=== PATIENT | male | born 1990 | race American Indian/Alaskan Native ===

== ENCOUNTER 2019-04-29 20:25 | Emergency (ER) | payer MEDICAID ==
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
[2019-04-29 20:35] VITALS: BP 151/104
[2019-04-29] MEDS ORDERED: oxyCODONE /ACETAMINOPHEN 5-325MG TAB PO ONE (21:50)
[2019-04-29] MEDS ORDERED: IBUPROFEN 600 MG TAB PO ONE (21:50)
[2019-04-29] MEDS ORDERED: ONDANSETRON 4 MG ODT TAB PO ONE (21:50)
[2019-04-29] MEDS ORDERED: CYCLOBENZAPRINE 10 MG TAB PO ONE (21:50)
--- NOTE | 2019-04-29 22:07 | XRay Report ---
HISTORY:hand pain r/o foreign body/fx COMPARISON: None. TECHNIQUE: AP lateral and obliques views were obtained FINDINGS: Bones: Fracture distal aspect of the fifth metacarpal is present with angulation. Joint spaces: Maintained. Soft tissues: No significant abnormality. Additional findings: None. IMPRESSION: 1. Fracture distal fifth metacarpal Signer Name: Lai Dey MD Signed: 04/29/2019 10:03 PM Workstation Name: [id number]
[2019-04-29] MEDS ORDERED: NEOMY 3.5 MG/BACIT 400 UNITS/POLY B 5000 UNITS/GM OINT PACKET TP ONE ×2 (22:30→22:31)
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
== END 2019-04-29 23:20 | disposition home or self-care (01) ==
LOC: ED 20:25
DX: S62.336A Displaced fracture of neck of fifth metacarpal bone, right hand, initial encounter for closed fracture (principal); S63.91XA Sprain of unspecified part of right wrist and hand, initial encounter; S60.221A Contusion of right hand, initial encounter; Z88.8 Allergy status to other drugs, medicaments and biological substances; W22.01XA Walked into wall, initial encounter; Y93.89 Activity, other specified; Y92.009 Unspecified place in unspecified non-institutional (private) residence as the place of occurrence of the external cause; Y99.8 Other external cause status
CPT/HCPCS: A6250; Q0162

== ENCOUNTER 2019-05-18 11:41 | Day surgery (SDC) | payer MEDICAID ==
[~2019-05-18 11:41] MED LIST: ceFAZolin/STERILE WATER 2 GM/20 ML SYRINGE IV NR
[2019-05-18] MEDS ORDERED: fentaNYL 100 MCG/2 ML INJ IV PRN (12:10)
[2019-05-18] MEDS ORDERED: ONDANSETRON 4 MG/2 ML INJ IV PRN (12:10)
--- NOTE | 2019-05-18 12:11 | Anesthesia Day of Surgery ---
Anesthesia Day of Surgery - Day of Surgery Patient Examined: Yes Patient H&P Reviewed: Yes Patient is NPO: Yes
--- NOTE | 2019-05-18 12:14 | Anesthesia Consultation ---
Anesthesia Consult and Med Hx Date of service: 05/18/19 - Airway Anesthetic Teeth Evaluation: Chipped ROM Head & Neck: Adequate Mental/Hyoid Distance: Adequate Mallampati Class: Class I Intubation Access Assessment: Good - Pre-Operative Health Status ASA Pre-Surgery Classification: ASA2 Proposed Anesthetic Plan: General - Pulmonary Hx Smoking: Yes (1-2 CIG. PER DAY) Hx Sleep Apnea: No (ROBE PRE SCREEN LOW RISK) - Cardiovascular System Hx Hypertension: Yes (STOPPED MEDS PER SELF X 2 WEEKS) - Central Nervous System Hx Psychiatric Problems: Yes (Anx/Depr/Chronic Anger) - Other Systems Hx Cancer: No
[2019-05-18] MEDS ORDERED: LACTATED RINGERS 1,000 ML IV SCH (13:00)
[2019-05-18] MEDS ORDERED: MIDAZOLAM 2 MG/2 ML INJ IV NR (13:00)
[2019-05-18] MEDS ORDERED: NEOMY 40 MG/POLYMYXIN B 200,000 UNITS/ML (GU) AMPULE IR ONE ×2 (13:06→14:07)
[2019-05-18] MEDS ORDERED: LIDOCAINE MPF (2%) 20 MG/1 ML VIAL 5 ML ONE (13:09)
[2019-05-18] MEDS ORDERED: PROPOFOL 200 MG/20 ML VIAL IV ONE (13:09)
[2019-05-18] MEDS ORDERED: fentaNYL 100 MCG/2 ML INJ ONE (13:09)
[2019-05-18] MEDS ORDERED: MIDAZOLAM 2 MG/2 ML INJ ONE (13:09)
[2019-05-18] MEDS ORDERED: KETOROLAC 30 MG/1 ML INJ ONE (13:42)
[2019-05-18] MEDS ORDERED: ONDANSETRON 4 MG/2 ML INJ ONE (13:42)
[2019-05-18] MEDS ORDERED: SODIUM CHLORIDE 0.9% IRR 1,500 ML BOTTLE IR ONE (14:07)
[2019-05-18] MEDS ORDERED: HYDROmorphone 1 MG/1 ML INJ ONE ×2 (14:30→15:47)
[2019-05-18] MEDS ORDERED: BUPIVACAINE/PF (0.5%) 5 MG/1 ML 30 ML VIAL INFILTRATI ONE ×2 (14:53→15:00)
[2019-05-18] MEDS ORDERED: LACTATED RINGERS 1,000 ML ONE (15:10)
--- NOTE | 2019-05-18 15:21 | Procedure Note ---
Date of procedure: 05/18/19 Pre-op diagnosis: Displaced right 5th metacarpal fracture Post-op diagnosis: same Procedure: Attempted closed reduction followed by a mini open reduction insertion of intramedullary nail right fifth metacarpal Procedure The patient was brought to the OR and placed on the OR table in the supine position following induction with Mac anesthesia the patient's right upper extremity was prepped and draped in the usual sterile manner. A timeout procedure was done to identify the patient and the correct operative site. The arm was exsanguinated followed by inflation of the pneumatic tourniquet to 250 mmHg. Using C-arm fluoroscopy the right hand the patient was manipulated to restore normal alignment this was followed by insertion of the threaded guide wire into the distal fragment after multiple attempts at placing the guidewire into the metacarpal head and traversing the distal fragment with no significant change in position decision was made to perform a mini open procedure using a midline incision over the distal portion of the fifth metacarpal shaft and head this was taken down sharply through skin and subcutaneous the extensor tendon was split longitudinally.Retractors were placed and the wound the distal fragment was seen and was manipulated into a note more reduced position this was followed by insertion of the threaded guidewire this was followed by placement of a 4.5 mm intramedullary nail which measured 40 mm in length. AP and lateral views were obtained showing good reduction at the fracture and placement of the IM theresa. The wound was then copiously irrigated the extensor tendon were repaired using 2-0 Vicryl the skin was closed with 3-0 nylon routine. Dressings were applied as well as a finger splint with the fifth finger and flexion at the metacarpophalangeal joint and PIP joints. The patient tolerated the procedure there were no complications Anesthesia: MAC Surgeon: FELIPE ABARCA Estimated blood loss: minimal Pathology: none Condition: stable Disposition: PACU
--- NOTE | 2019-05-18 15:47 | XRay Report ---
INTRAOPERATIVE FLUOROSCOPY: RIGHT LITTLE FINGER 2 FLUOROSCOPIC IMAGES INDICATION / CLINICAL INFORMATION: DISPLACED FX FIFTH METATARSAL RT HAND/ORIF. TECHNIQUE: Intraoperative spot images were obtained during the procedure. FINDINGS: A screw is seen within the right little finger metacarpal shaft which does not definitely traverse th e little finger metacarpal head fracture fragment with mild volar angulation. Findings were discussed with Dr. Reyna. Close follow-up 3 view postop x-rays are recommended. Fluoroscopy Time: 1 minute 52 seconds. Fluoroscopy Images: 2. Signer Name: Tae Rodriguez MD Signed: 05/18/2019 3:43 PM Workstation Name: [id number]
[2019-05-18] MEDS ORDERED: HYDROcodone/ACETAMINOPHEN 7.5-325MG TAB PO PRN (15:51)
[2019-05-18] MEDS ORDERED: HYDROcodone/ACETAMINOPHEN 7.5-325MG TAB ONE (15:52)
[2019-05-18] MEDS ORDERED: HYDROmorphone 1 MG/1 ML INJ IM ONE (16:00)
--- NOTE | 2019-05-18 18:11 | Post Anesthesia Evaluation ---
- Post Anesthesia Evaluation Patient Participated: Yes Airway Patent: Yes Stable Respiratory Function: Yes Nausea/Vomiting: No Temp > 96.8F: Yes Pain Manageable: Yes Adequeate Hydration: Yes Anesthesia Complications: No Block Receding Appropriately: Not Applicable Patient on Ventilator: No
[2019-05-18 21:11] VITALS: BP 151/88
== END 2019-05-18 11:42 | disposition home or self-care (01) ==
LOC: OR 11:41
PROVIDERS: ATTEND Orthopaedic Surgery
DX: S62.396A Other fracture of fifth metacarpal bone, right hand, initial encounter for closed fracture (principal); I10 Essential (primary) hypertension; F32.9 Major depressive disorder, single episode, unspecified; F41.9 Anxiety disorder, unspecified; Z98.890 Other specified postprocedural states; X58.XXXA Exposure to other specified factors, initial encounter; Y93.89 Activity, other specified; Y92.89 Other specified places as the place of occurrence of the external cause; Y99.8 Other external cause status
CPT/HCPCS: 26615; 73140; C1713; J0690; J1170; J1885; J2250; J2405; J2704; J3010; J7120

== ENCOUNTER 2019-11-10 12:27 | Emergency (ER) | payer SELFPAY ==
[2019-11-10] MEDS ORDERED: AMOXICILLIN/K CLAV 875/125MG TAB PO ONE (13:30)
[2019-11-10] MEDS ORDERED: IBUPROFEN 800 MG TAB PO ONE (13:30)
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
[2019-11-10 14:19] VITALS: BP 144/101
== END 2019-11-10 14:31 | disposition home or self-care (01) ==
LOC: ED 12:27
DX: S60.470A Other superficial bite of right index finger, initial encounter (principal); W50.3XXA Accidental bite by another person, initial encounter; Y93.89 Activity, other specified; Y92.89 Other specified places as the place of occurrence of the external cause; Y99.8 Other external cause status